=== PATIENT | male | born 1955 | race Caucasian/White ===

== ENCOUNTER 2016-06-20 01:24 | Inpatient (IN) | payer OTHER ==
[~2016-06-20] VITALS: Ht 175.3 cm; Wt 98.4 kg
[~2016-06-20 01:24] MED LIST: AMLODIPINE; CRESTOR40 M2 PO; HYDROCHLOROTHIAZIDE; LISINOPRIL
[2016-06-20] MEDS ORDERED: HYDROCHLOROTHIAZIDE PO (08:59)
[2016-06-20] MEDS ORDERED: AMLODIPINE PO (08:59)
[2016-06-20] MEDS ORDERED: LISINOPRIL PO (08:59)
[2016-06-20] MEDS ORDERED: HYDROCHLOROTHIA25 M1 PO (09:03)
[2016-06-20] MEDS ORDERED: AMLODIPINE BESYL5 M1 PO (09:03)
[2016-06-20] MEDS ORDERED: LISINOPRIL40 M1 PO (09:04)
[2016-06-20] MEDS ORDERED: PRILOSEC OTC20 M1 PO (09:55)
[2016-06-20] MEDS ORDERED: ASPIRIN EC325 M2 PO (09:55)
[2016-06-20] MEDS ORDERED: MIRALAX17 G1 PO (09:55)
[2016-06-20] MEDS ORDERED: COLACE100 M1 PO (09:55)
[2016-06-20] MEDS ORDERED: MS CONTIN30 M1 PO (09:55)
[2016-06-20] MEDS ORDERED: DILAUDID2 M1 PO (09:55)
--- NOTE | 2016-06-20 10:02 | Patient Discharge Instructions ---
Discharge Instructions General Discharge Information You were seen/treated for: RIGHT HIP PAIN You had these procedures: RIGHT TOTAL HIP REPLACEMENT Watch for these problems: INCREASING PAIN DESIPITE THE USE OF PAIN MEDICATION, REDNESS, WARMTH, SWELLING. DRAINAGE OF ANY TYPE FROM INCISION. INABILITY TO BEAR WEIGHT ON RIGHT LEG. FEVER GREATER THAN 101.5 DEGREES. Do not soak the wound: Yes No bath, but you may shower: Yes Other wound care: KEEP WOUND CLEAN AND DRY. NO OINTMENTS OF ANY TYPE ON INCISION, NO EXCEPTIONS. YOUR HOME CARE NURSE WILL CHANGE YOUR DRESSING ON THE SECOND DAY AFTER YOUR SURGERY, (Saturday06/22/2016) Special Instructions: ASPIRIN: YOU WILL BE REQUIRED TO TAKE ASPIRIN TWICE DAILY FOR A MINIMUM OF 3 WEEKS. THIS IS VERY IMPORTANT IT WILL HELP PROTECT YOU FROM DEVELOPING A BLOOD CLOT. PLEASE TAKE WITH FOOD TO PROTECT YOUR STOMACH LINING. YOU HAVE ALSO BEEN GIVEN PRILOSEC WHICH IS A MEDICATION THAT WILL ALSO HELP TO PROTECT YOUR STOMACH. CONSTIPATION: CONSTIPATION IS COMMON WITH THE USE OF PAIN MEDICATIONS. DR. PINEDA HAS GIVEN YOU COLACE AND MIRALAX TO HELP WITH YOUR BOWEL MOVEMENTS. PLEASE TAKE THESE MEDICATIONS DIRECTED. Diet Continue normal diet: Yes Recommended Diet: Heart Healthy Activity Full Activity/No Limits: No Activity Self Limited: Yes Pounds, do NOT lift more than: 10 Acute Coronary Syndrome Inclusion Criteria At DC or during hospital stay patient has or had the following: ACS DIAGNOSIS No Discharge Core Measures Meds if any: Prescribed or Continued at Discharge Meds if any: NOT Prescribed or Continued at Discharge Congestive Heart Failure Inclusion Criteria At DC or during hospital stay patient has or had the following: CHF DIAGNOSIS No Discharge Core Measures Meds if any: Prescribed or Continued at Discharge Meds if any: NOT Prescribed or Continued at Discharge Cerebrovascular accident Inclusion Criteria At DC or during hospital stay patient has or had the following: CVA/TIA Diagnosis No Discharge Core Measures Meds if any: Prescribed or Continued at Discharge Meds if any: NOT Prescribed or Continued at Discharge Venous thromboembolism Inclusion Criteria VTE Diagnosis No VTE Type NONE VTE Confirmed by (Test) NONE Discharge Core Measures - Per Current guidelines, there needs to be overlap - treatment for the first 5 days of Warfarin therapy. - If discharged on Warfarin prior to 5 days of - overlap therapy, the patient will need to be - assessed for post discharge needs including - *Post discharge parental anticoagulation - *Warfarin and/or parental anticoagulation education - *Follow up date to check INR post discharge At least 5 days overlap therapy as Inpatient No Meds if any: Prescribed or Continued at Discharge Note: Overlap Therapy is Warfarin and Anticoagulant Meds if any: NOT Prescribed or Continued at Discharge
--- NOTE | 2016-06-20 10:04 | Admission Core Measures ---
Admission Meds I reviewed the following Meds: Current Medications Sig/Cortney Start time Last Medication Dose Stop Time Status Admin Acetaminophen 975 MG ONCE 06/20 0000 NR (Tylenol) 06/20 2358 Amlodipine Besylate 5 MG DAILY 06/20 1000 CAN (Norvasc) Amlodipine Besylate 5 MG DAILY 06/20 1000 AC (Norvasc) Atorvastatin Calcium 80 MG 1700 06/20 1700 AC (Lipitor) Cefazolin Sodium 2,000 MG ONCE 06/20 0000 NR (Kefzol-Ancef Inj) 06/20 2358 Hydrochlorothiazide 25 MG DAILY 06/20 1000 CAN (Hydrodiuril) Hydrochlorothiazide 25 MG DAILY 06/20 1000 AC (Hydrodiuril) Lisinopril 40 MG DAILY 06/20 1000 CAN (Prinivil) Lisinopril 40 MG DAILY 06/20 1000 AC (Prinivil) Oxycodone HCl 10 MG ONCE 06/20 0000 NR (Roxicodone) 06/20 2358 Acute Coronary Syndrome Inclusion Criteria ACS Diagnosis No Inpatient Core Measures LDL Reminder: If No, please order W/I first 24hr of stay Congestive Heart Failure Inclusion Criteria CHF Diagnosis No Cerebrovascular accident Inclusion Criteria CVA/TIA Diagnosis No Inpatient Core Measures Bedside Swallow Eval Reminder: If BSE failed, place ST order Antithrombotic Reminder: Order Antithrombotic Medication by end of day 2 Antithrombotic Reminder: Document Reason Antithrombotic Not ordered by end of day 2 AFIB/Flutter Reminder: If Present, add to problem list AFIB/Flutter Reminder: Order Anticoag Medication for pts with AFIB/Flutter Atherosclerosis Reminder: If Present, add to problem list LDL Reminder: If No, please order W/I first 24hr of stay PT Order Reminder: If No, please order Venous thromboembolism Inpatient Core Measures VTE Risk Factors: Age > 40, Surgery No [facility] VTE prophylaxis d/t No contraindications No VTE Pharm Prophylaxis d/t No contraindications Inclusion Criteria - Per Current guidelines, there needs to be overlap - treatment for the first 5 days of Warfarin therapy. - Parenteral Anticoagulation (IV or SC) needs to be - given along with Warfarin therapy. VTE Diagnosis No VTE Type NONE VTE Confirmed by (Test) NONE Problem List As ranked by this Provider includes Assessment & Plan 1. Unilateral primary osteoarthritis, right hip HOME MEDS Home Med List Amlodipine Besylate 5 MG TABLET 1 TAB PO DAILY HTN (Reported) Aspirin (Ecotrin*) 325 MG TABLET.DR 1 TAB PO BID ANTICOAGULATION Docusate Sodium (Colace) 100 MG CAPSULE 1 CAP PO BID CONSITPATION Hydrochlorothiazide 25 MG TABLET 1 TAB PO DAILY HTN (Reported) Hydromorphone HCl (Dilaudid) 2 MG TABLET 1-2 TAB PO Q4-6 PRN PAIN Lisinopril 40 MG TABLET 1 TAB PO DAILY HTN (Reported) Morphine Sulfate (Ms Contin) 30 MG TABLET.ER 1 TAB PO BID PAIN Omeprazole Magnesium (Prilosec Otc) 20 MG TABLET.DR 1 TAB PO DAILY GI PROTECTION Polyethylene Glycol 3350 (Miralax) 17 GRAM POWD.PACK 1 PAC PO DAILY CONSTIPATION Rosuvastatin Calcium (Crestor) 40 MG TABLET 1 TAB PO DAILY CHOLESTEROL ( Reported) Discontinued Medications [AMLODIPINE] HTN (Reported) [HYDROCHLOROTHIAZIDE] HTN (Reported) [LISINOPRIL] HTN (Reported)
--- NOTE | 2016-06-20 10:08 | Surgical Discharge Summary ---
Visit Information Visit Dates Admission Date: 06/20/16 Discharge Date: 06/20/2016 History of Present Illness Chief Complaint: RIGHT HIP PAIN SECONDARY TO OSTEOARTHRITIS Medical History Isolation History: Standard Surgical History Pertinent Surgical History: non-contributory Review of Systems: SEE H&P Hospital Course Course Attending Physician: NAZIA PINEDA MD Primary Care Physician: ZAHRAA VALDEZ,BRANDON Michael Hospital Course: ОЛЕГ WAS ADMITTED TO THE HOSPITAL ON 06/20/2016 FOR AN ELECTIVE RIGHT TOTAL HIP REPLACEMENT. HE TOLERATED THE PROCEDURE WELL AND WAS TRANSFERRED TO A GENERAL SURGICAL FLOOR. HE REMAINED NEUROVASCULARLY INTACT. HIS VITAL SIGNS WERE STABLE AND WITHIN NORMAL LIMITS. HIS DIET WAS ADVANCED AND TOLERATED. HE VOIDED SPONTANEOUSLY. HIS PAIN WAS CONTROLLED WITH PO PAIN MEDICATION. HE WAS EVALUATED AND TREATED BY PHYSICAL THERAPY. HE WAS DEEMED APPROPRIATE FOR DISCHARGE. Allergies: Coded Allergies: No Known Allergies (06/12/16) Disposition Summary Disposition Principal Diagnosis: RIGHT HIP UNILATERAL OSTEOARTHRITIS Additional Diagnosis: NONE Discharge Disposition: home health services Discharge Instructions General Discharge Information Code Status: Full Code Patient's Diet: HEART HEALTHY, ADVANCE TOLERATED Patient's Activity: WEIGHT BEAR TOLERATED ON RIGHT HIP Follow-Up Instructions/Appts: CALL/CONTACT DR. PINEDA'S OFFICE TO ARRANGE/CONFIRM FOLLOW UP APPOINTMENT TO BE SEEN IN 6 WEEKS FROM DATE OF SURGERY. Medications at Discharge Discharge Medications: Continue taking these medications: Rosuvastatin Calcium (Crestor) 40 MG TABLET 1 Tablet ORAL DAILY Amlodipine Besylate (Amlodipine Besylate) 5 MG TABLET 1 Tablet ORAL DAILY Hydrochlorothiazide (Hydrochlorothiazide) 25 MG TABLET 1 Tablet ORAL DAILY Lisinopril (Lisinopril) 40 MG TABLET 1 Tablet ORAL DAILY Start taking the following new medications: Aspirin (Ecotrin*) 325 MG TABLET.DR 1 Tablet ORAL TWICE DAILY Qty = 60 No Refills Docusate Sodium (Colace) 100 MG CAPSULE 1 Capsule ORAL TWICE DAILY Qty = 14 No Refills Instructions: DISCONTINUE USE IF YOU DEVELOP LOOSE STOOL OR DIARRHEA Hydromorphone HCl (Dilaudid) 2 MG TABLET 1-2 Tablet ORAL EVERY 4-6 HOURS as needed for PAIN Qty = 36 No Refills Morphine Sulfate (Ms Contin) 30 MG TABLET.ER 1 Tablet ORAL TWICE DAILY Qty = 6 No Refills Polyethylene Glycol 3350 (Miralax) 17 GRAM POWD.PACK 1 Packet ORAL DAILY Qty = 7 No Refills Instructions: dissolve in water, DISCONTINUE USE IF YOU DEVELOP LOOSE STOOL OR DIARRHEA Omeprazole Magnesium (Prilosec Otc) 20 MG TABLET. 1 Tablet ORAL DAILY Qty = 30 No Refills
--- NOTE | 2016-06-20 10:16 | RADIOLOGY REPORT ---
EXAMINATION: XR HIP, RIGHT CLINICAL INFORMATION: Status post right hip replacement COMPARISON: None TECHNIQUE: Two views of the right hip. FINDINGS: There is a total right hip arthroplasty. The femoral head component articulates appropriately with the acetabular component. No periprosthetic lucency or fracture. Postoperative soft tissue gas. IMPRESSION: Normal postoperative appearance of the right total hip prosthesis.
[2016-06-20 11:15] VITALS: BP 98/60
--- NOTE | 2016-06-20 11:15 | NUR ---
PT TRANSFERRED FROM PACU S/P RIGHT THR, PT AXO, DENIES PAIN, RT HIP DSG CDI, STACY STOCKINGS PLACED, + PEDAL PULSE, PT C/O RIGHT HIP NUMBNESS, ALL NEEDS WITHIN REACH, FAMILY AT BEDSIDE, PT ORIENTED TO ROOM, CALL LIGHT AND PLAN OF CARE. PT VERBALIZES UNDERSTANDING
--- NOTE | 2016-06-20 13:08 | PN- Orthopedic ---
Subjective Subjective: The patient was seen this afternoon postoperatively. He reports he has minimal discomfort in the operative leg. He has no other complaints at the current time and is eager to work with physical therapy. Objective Vital Signs and I&Os Vital Signs Date Time Temp Pulse Resp B/P B/P Pulse O2 O2 Flow FiO2 Mean Ox Delivery Rate 06/20 1115 94.0 72 18 98/60 97 Room Air Intake & Output 06/20 1600 06/20 0800 06/20 0000 06/19 1600 06/19 0800 06/19 0000 Intake Total Output Total Balance Patient 217 lb Weight Weight Reported by Patient Measurement Method Physical Exam: Gen.: Alert and in no obvious distress Skin: Warm and dry Cardiac: S1 and S2 regular Pulmonary: Bilateral breath sounds were equal with good exchange Extremities: Bilateral lower extremities are warm without calf tenderness or significant edema. Gross motor and sensory are intact. Right hip surgical dressing is clean, dry, and intact without signs of infection. Assessment/Plan Assessment/Plan Assessment: 60-year-old male status post right total hip arthroplasty. Postoperative the patient is progressing as expected, his pain is under adequate control, and he is working with physical therapy. Plan: Continue current pain regiment Out of bed with physical therapy patient is weightbearing as tolerated GI and DVT prophylaxis starting ASA 325mg po bid first dose tonight Advance diet as tolerated Hep-Lock IV fluids once on diet and after void Monitor for postoperative void Resume home medications Discharge home later today if goals met Core Measures/Miscellaneous Venous Thromboembolism VTE Risk Factors: Age > 40, Surgery VTE Contraindications: No Contraindications VTE Diagnosis: No VTE Type: NONE VTE Confirmed by (Test): NONE Beta Alexis Is Beta Alexis a Home Med? No Antibiotics Is Patient on Antibiotics? Yes If Yes: prophylaxis
[2016-06-20 13:54] VITALS: BP 120/66
--- NOTE | 2016-06-20 15:07 | Operative Report ---
Operative/Inv Procedure Report Surgery Date: 06/20/16 Name of Procedure: Right total hip replacement Pre-Operative Diagnosis: Primary right hip DJD Post-Operative Diagnosis: Same Estimated Blood Loss: 250 Surgeon/Animal Care Assistant: EDWIN VALDEZ,NAZIA Rios Anesthesia: block Operative/Procedure Note Note: Description of Procedure: The patient was taken to the operating room and positively identified. After induction of spinal anesthesia and administration of appropriate pre-operative antibiotics, the patient was positioned supine on the operating room table and all bony prominences were well padded. After performing a surgical timeout, the right lower extremity was prepped and draped in the usual sterile fashion. A direct anterior approach was made to the right hip. The incision was carried sharply through superficial soft tissues to the level of the fascia. Meticulous hemostasis was maintained with Bovie electocautery. The fascia over the tensor fascia lu muscle was opened sharply and the interval between the TFL and the sartorius was entered bluntly taking care to stay lateral to the lateral femoral cutaneous nerve. Retractors were placed around the femoral neck and the pericapsular fat was identified. The ascending branches of the lateral femoral circumflex vessels were identified and carefully coagulated. The pericapsular fat and anterior capsule were then resected. A napkin ring osteotomy was performed and the femoral head was removed without difficulty. Attention was then turned to the acetabulum. After appropriate placement of retractors, the acetabulum was exposed. Soft tissue was cleaned from the acetabular margin and notch. Overhanging osteophytes were removed and the teardrop was exposed. The acetabulum was then sequentially reamed to accept a 60 mm Mel Tritanium hemispherical solid back shell. This was impacted into place in the appropriate position and fitted with a 36 mm Trident X3 zero degree polyethylene insert. Attention was then turned to the femur. After performing the appropriate ligament releases, the proximal femur was exposed. It was then sequentially broached to accept a size 6 [place] Anato stem. This was trialed for leg length and stability. The trial component was removed and the final component was impacted into place. The trunnion was carefully cleaned and fit with a 36 mm, + 5 Biolox delta ceramic femoral head. The hip was reduced and put through a full range of motion and found to be stable. The articular space was then irrigated with sterile saline. The periarticular soft tissues were infilitrated with Marcaine. The fascial layer was closed with interrupted #1 vicryl suture and the skin was re-approximated with interrupted 2 -0 vicryl. The skin was closed with a running 3-0 V-Lock suture. Steri-strips and a sterile dressing were applied. The patient was awakened and taken to the recovery room in satisfactory condition.
== END 2016-06-20 16:15 | disposition home health service (06) | DRG 470 ==
LOC: SDA 01:24 → ENRESERV 09:59 → 2NA 11:07 → ENPENDDIS 13:13 → 2NA 16:15
PROVIDERS: ADMIT Orthopaedic Surgery
PROC: 0SR904A Replacement of Right Hip Joint with Ceramic on Polyethylene Synthetic Substitute, Uncemented, Open Approach (ICD-10-PCS; principal; 2016-06-20)
DX: M16.11 Unilateral primary osteoarthritis, right hip (principal); I10 Essential (primary) hypertension; K21.9 Gastro-esophageal reflux disease without esophagitis; E74.39 Other disorders of intestinal carbohydrate absorption; Z87.891 Personal history of nicotine dependence
CPT/HCPCS: 2NAP; 73502-RT; 88304; 97110-GO; 97116-GO; 97161-GP; 97530-GO; J0131; J0690; J0735; J1100; J1885; J2405; J2550; J7042